=== PATIENT | male | born 1980 | race Caucasian/White ===

== ENCOUNTER 2020-07-18 17:05 | Emergency (ER) | payer OTHER ==
[~2020-07-18] VITALS: Ht 167.6 cm; Wt 62.6 kg
[2020-07-18] MEDS ORDERED: MOBIC15 MG PO (21:02)
[2020-07-18 21:45] VITALS: BP 162/108
== END 2020-07-18 22:00 | disposition home or self-care (01) ==
LOC: ER 17:05
DX: M77.8 Other enthesopathies, not elsewhere classified (principal); F17.210 Nicotine dependence, cigarettes, uncomplicated; Z87.442 Personal history of urinary calculi